=== PATIENT | female | born 1980 ===

== ENCOUNTER 2025-02-20 09:46 | Outpatient (CLI) | payer BC, SELFPAY ==
[2025-02-22 01:04] LABS: HPV Source Cervical; HPV, High Risk by TMA Not Detected
== END 2025-02-20 09:47 | disposition home or self-care (01) ==
PROVIDERS: Visit Provider Obstetrics & Gynecology
DX: Z12.4 Encounter for screening for malignant neoplasm of cervix (principal)
CPT/HCPCS: 87624; 87625; 88141; 88142

== ENCOUNTER 2025-02-26 07:45 | Outpatient (CLI) | payer BC, SELFPAY | END 2025-02-26 07:46 | disposition home or self-care (01) | LOC: NFLDREF 02-27 05:30 | PROVIDERS: Visit Provider Obstetrics & Gynecology | DX: Z13.1 Encounter for screening for diabetes mellitus (principal); Z13.220 Encounter for screening for lipoid disorders | CPT/HCPCS: 80061; 82947 ==